=== PATIENT | female | born 1970 | race Caucasian/White ===

== ENCOUNTER → 2016-05-05 | Outpatient (CLI) | payer OTHER ==
--- NOTE | 2016-05-05 12:35 | MRI ---
EXAM DESCRIPTION: Brain MRI. CLINICAL HISTORY: Migraine with aura COMPARISON: None. TECHNIQUE: Multiplanar, multisequence MR images were acquired without IV contrast. FINDINGS: The midline structures are unremarkable on today's study. No restricted diffusion on today's study. The cade and white matter is unremarkable. Ventricles are midline and unremarkable. No abnormal extra-axial fluid. No mass or mass effect. The flow voids are maintained on today's study. Orbits and globes are unremarkable. Large retention cyst seen within the right maxillary sinus. No evidence of sinusitis. No mastoid air cell fluid. Gradient sequences reveal no evidence of old hemorrhage. IMPRESSION: Today's exam is unremarkable in stable when compared to prior study. No findings to account for patient's migraine headaches. Electronically signed by: Roscoe Peterson MD 05/05/2016 12:33
== END ==
LOC: MRI 10:49
PROVIDERS: ATTEND Family Medicine
DX: G43.109 Migraine with aura, not intractable, without status migrainosus (principal)

== ENCOUNTER → 2016-10-17 | Outpatient (CLI) | payer OTHER | END | disposition home or self-care (01) | LOC: MAMMO 15:26 | PROVIDERS: ATTEND Nurse Practitioner Acute Care | DX: Z12.31 Encounter for screening mammogram for malignant neoplasm of breast (principal) ==

== ENCOUNTER → 2017-03-22 | Outpatient (CLI) | payer BC ==
--- NOTE | 2017-03-22 17:46 | MRI ---
EXAM DESCRIPTION: Brain w/wo Contrast CLINICAL HISTORY: HYPOGOSSAL NERVE NEURALGIA COMPARISON: None TECHNIQUE: Multiplanar multisequence imaging of the brain including the intravenous administration of contrast. FINDINGS: There is no evidence of acute mass, mass effect, midline shift or hemorrhage. No focal abnormal extra-axial fluid collection is seen. The ventricles, basal cisterns and extra-axial fluid spaces are normal in size and configuration. Brain parenchymal signal is normal. No abnormality is seen at the CP angles and IACs. No abnormal foci of enhancement. IMPRESSION: Normal exam. Electronically signed by: George Guzman 03/22/2017 5:45 PM [facility]
--- NOTE | 2017-03-25 17:15 | CT ---
EXAM DESCRIPTION: Soft Tissue Neck w/Contrast: CT. 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 CT scan of the neck soft tissues 08/01/2012. TECHNIQUE: Spiral, axial 2.5 mm scans through the neck soft tissues after infusion of IV contrast. Sagittal and coronal 2.0 mm reconstructions. No adverse reactions. Total Exam DLP: 274.89 mGy-cm. This exam was performed according to our departmental CT dose-optimization program which includes automated exposure control, adjustment of the mA and/or kV according to patient size and/or use of iterative reconstruction technique; to reduce radiation dose to as low as reasonably achievable (ALARA). FINDINGS: Since the prior study, the right submandibular gland and right parotid gland have been excised with numerous surgical clips in the glandular bed also posterior to the glandular bed abutting the base of the right parotid gland. Increased density in the residual fat with deformity of the overlying skin where excision was made. Increased subcutaneous thickening at the base of the right external auditory canal No abnormal enhancement in the residual fatty tissue. Normal size density and enhancement of the left submandibular gland. Lymph node lateral to this gland and a submental lymph node is also visualized. Surgical clips in the parapharyngeal space and the right common carotid space. No adenopathy or surgical clips in the right paracervical space. No bone destruction. Large polyp or mucous retention cyst in the base anterior right antrum. Bilateral ethmoid air cells and left antrum are well aerated. Mastoid air cells are well-aerated. The included nasopharynx or oropharynx and hypopharynx are not effaced or displaced. No significant abnormalities in the cervical spine. IMPRESSION: 1. Previous resection of the right submandibular and right parotid glands for benign tumor with lymph node staging surgical clips. Deformity of the overlying skin. No abnormal mass or abnormal contrast enhancement in the surgical bed. 2. Mucous retention cyst or polyp in the right maxillary antrum resolved from acute sinusitis on the prior study and chronic pansinusitis in the paranasal sinuses. Electronically signed by: George Howell MD 03/25/2017 5:13 PM [employer]AM[employer]ER Workstation: [employer]
== END ==
LOC: CT 16:00
PROVIDERS: ATTEND Family Medicine
DX: D11.0 Benign neoplasm of parotid gland (principal); G52.3 Disorders of hypoglossal nerve

== ENCOUNTER → 2017-03-22 | Outpatient (CLI) | payer BC | LOC: MRI 15:21 | PROVIDERS: ATTEND Family Medicine | DX: Z79.899 Other long term (current) drug therapy (principal) ==

== ENCOUNTER → 2017-09-21 | Outpatient (CLI) | payer BC | LOC: GMAJ 11:10 | PROVIDERS: ATTEND Family Medicine | DX: Z00.00 Encounter for general adult medical examination without abnormal findings (principal) ==

== ENCOUNTER → 2017-10-19 | Outpatient (CLI) | payer BC ==
--- NOTE | 2017-10-19 09:55 | US ---
EXAM DESCRIPTION: Soft Tissue,Head/Neck CLINICAL HISTORY: 47 years, Female, THYROID NODULE COMPARISON: CT soft tissue neck March 22, 2017 FINDINGS: Thyroid ultrasound demonstrates inhomogeneous thyroid gland with measurable nodule on the right. The coarse texture may indicate developing nodules of what may eventually be a multinodular goiter. The appearance is not typical of chronic stage of Hodgkin low-dose thyroiditis. No anterior cervical lymph nodes are seen on the submitted images.. The right lobe measures 5.3 x 1.5 x 1.6 cm. The thyroid isthmus measures 1.2 mm in thickness. The left lobe measures 1.3 x 1.4 x 4.6 cm. Nodules Right In the right thyroid lobe, two nodules are identified. One in the posterior mid to lower right thyroid lobe is slightly hypoechoic relative to the adjacent thyroid parenchyma and measures 1 x 0.6 x 0.8 cm. No internal microcalcifications to suggest the need for biopsy at this point. Follow-up sonogram in one year is recommended. In the more anterior inferior right thyroid lobe and other nodule is noted with a hypoechoic halo and central echogenicity slightly less than the adjacent thyroid parenchyma. This measures 1.2 x 0.5 x 0.7 cm. At this size, with no internal microcalcifications, one year follow-up is recommended. The left In the inferior left thyroid lobe, small hypoechoic lesion measures 0.6 x 0.3 x 0.4 cm. At this size this is unlikely to be significant. IMPRESSION: Bilateral thyroid nodules. Follow-up imaging in one year is recommended. Electronically signed by: Joe Arnold MD 10/19/2017 9:53 AM CDT
--- NOTE | 2017-10-19 09:57 | US ---
EXAM DESCRIPTION: Carotid Duplex CLINICAL HISTORY: CAROTID BRUIT COMPARISON: None Available. TECHNIQUE: Carotid Doppler ultrasound FINDINGS: Right Submitted images show arteriosclerotic plaque in the right carotid bulb without significant narrowing. The following flow velocities were obtained: Common carotid artery peak systolic flow velocity measures 82-96 centimeters per second. Internal carotid artery peak systolic flow velocity measures 71-83 centimeters per second. External carotid artery peak systolic flow velocity measures 66 centimeters per second. Flow in the right vertebral artery is antegrade. The right internal carotid to common carotid peak systolic flow velocity ratio equals 0.9 which is normal. Left Submitted images show widely patent vessels with mild plaque at the carotid bifurcation. The following flow velocities were obtained: Common carotid artery peak systolic flow velocity measures 80-90 centimeters per second. Internal carotid artery peak systolic flow velocity measures 62-86 centimeters per second. External carotid artery peak systolic flow velocity measures 78 centimeters per second. Flow in the left vertebral artery is antegrade. The left internal carotid to common carotid peak systolic flow velocity ratio of 1.0 is normal. IMPRESSION: No hemodynamically significant stenosis. Electronically signed by: Joe Arnold MD 10/19/2017 9:56 AM CDT
== END ==
LOC: US 07:48
PROVIDERS: ATTEND Family Medicine
DX: I65.23 Occlusion and stenosis of bilateral carotid arteries (principal); E04.1 Nontoxic single thyroid nodule

== ENCOUNTER → 2017-12-19 | Outpatient (CLI) | payer BC | LOC: GMAJS 14:21 | PROVIDERS: ATTEND Physician Assistant | DX: R42 Dizziness and giddiness (principal) ==

== ENCOUNTER → 2018-03-08 | Outpatient (CLI) | payer BC ==
--- NOTE | 2018-03-11 15:04 | MAM ---
EXAM DESCRIPTION: 3D Screening BILATERAL : Digital Mammography. CLINICAL HISTORY: 48 years Female SCREEN . No complaints or personal history of breast cancer. Remote family history of breast cancer. Premenopausal. Childbirth. No HRT.. Lifetime risk of developing breast cancer (Tyrer-Cuzick model)(%): 7.4. COMPARISON: 2-D digital screening bilateral mammography 10/17/2016. TECHNIQUE: Bilateral CC and MLO projection full-field images, digital tomosynthesis mammographic technique. Bilateral digital 2-D full-field MLO images. CAD not available for tomosynthesis or 2-D images. FINDINGS: The breast parenchymal density pattern is: Heterogeneously dense breast tissue, which may obscure small masses. No skin thickening or nipple retraction. Bilateral solitary microcalcifications. No new focal, stellate mass or density, focal asymmetry , and no suspicious microcalcifications bilaterally. Stable mammograms compared to prior study. Taking into account, differences in mammographic technique. IMPRESSION: Benign exam. BIRAD CATEGORY: 2 BENIGN FINDINGS. RECOMMENDATIONS: FOLLOW UP: Routine digital bilateral mammographic screening, one year interval from February 2018. Written communication explaining the IMPRESSION and follow-up, will be mailed to the patient and referring health care provider. According to the [employer], yearly mammograms are recommended starting at age 40 and continuing as long as a woman is in good health. Any breast change noted on a breast self-exam should be reported promptly to the patient's healthcare provider. Breast MRI is recommended for women with an approximately 20-25% or greater lifetime risk of breast cancer, including women with a strong family history of breast or ovarian cancer and women who have been treated for Hodgkin's disease. A negative mammographic report should not delay tissue diagnosis in patients with significant clinical history or physical findings. Extremely dense breast tissue limits the sensitivity of digital mammography. Electronically signed by: George Howell MD 03/11/2018 3:03 PM [employer]
== END ==
LOC: MAMMO 08:00
PROVIDERS: ATTEND Family Medicine
DX: Z12.31 Encounter for screening mammogram for malignant neoplasm of breast (principal); E53.9 Vitamin B deficiency, unspecified

== ENCOUNTER → 2018-10-18 | Outpatient (CLI) | payer BC | LOC: GMAJ 10:40 | PROVIDERS: ATTEND Family Medicine | DX: E53.9 Vitamin B deficiency, unspecified (principal); E78.2 Mixed hyperlipidemia ==

== ENCOUNTER → 2018-11-28 | Outpatient (CLI) | payer BC | LOC: SL 19:27 | PROVIDERS: ATTEND Family Medicine | DX: G47.33 Obstructive sleep apnea (adult) (pediatric) (principal) ==

== ENCOUNTER 2019-05-29 05:29 | Day surgery (SDC) | payer BC ==
[2019-05-29] MEDS ORDERED: PROPOFOL 200 MG/20 ML VIAL IV ONE (07:00)
[2019-05-29] MEDS ORDERED: LIDOCAINE 1% 10 ML VIAL INJ ONE (07:00)
[2019-05-29] MEDS ORDERED: LACTATED RINGERS 1,000 ML ONE (07:39)
[2019-05-29] MEDS ORDERED: MIDAZOLAM INJ 2 MG/2 ML VIAL ONE (08:11)
[2019-05-29 08:17] VITALS: O2SAT 99
--- NOTE | 2019-05-29 09:28 | OP ---
DATE OF PROCEDURE: 05/29/19 PREOPERATIVE DIAGNOSIS: 1. Screening colonoscopy. POSTOPERATIVE DIAGNOSIS: 1. Colonic polyps times 2. PROCEDURE: 1. Colonoscopy. SURGEON: Thomas Bowser MD PROCEDURE: After complete informed consent and adequate prep, the patient was placed in the left lateral position. General anesthesia was induced. Digital rectal exam was normal. The colonoscope was introduced without difficulty to the cecum. Upon withdrawal, in the distal ascending colon, an approximately 1.5 cm polyp was identified and removed completely with a snare, first cold snare would not go through, so we used a slight amount of heat while elevating the polyp and it was removed entirely. On further withdrawal, the mucosa appeared normal. No other polyps were seen except in the mid descending colon, an additional polyp, approximately 6 mm, was identified. It also was removed completely with a hot snare and stuck on the end of the scope. It was retrieved and the scope re-inserted to the mid descending colon. Upon further withdrawal, no additional polyps were noted. The rectum appeared normal. The patient tolerated the procedure and was taken to Recovery to be discharged. #[id number] cc: Thomas Read MD [facility]
[2019-05-29 10:11] VITALS: BP 168/88; TEMP 97.6
== END 2019-05-29 09:40 | disposition home or self-care (01) ==
LOC: AMB 05:29
PROVIDERS: ATTEND Surgery
DX: Z12.11 Encounter for screening for malignant neoplasm of colon (principal); D12.2 Benign neoplasm of ascending colon; D12.4 Benign neoplasm of descending colon; K21.9 Gastro-esophageal reflux disease without esophagitis; K58.9 Irritable bowel syndrome, unspecified; E78.00 Pure hypercholesterolemia, unspecified; F41.9 Anxiety disorder, unspecified; Z88.0 Allergy status to penicillin; Z88.2 Allergy status to sulfonamides; Z88.1 Allergy status to other antibiotic agents; Z88.8 Allergy status to other drugs, medicaments and biological substances; Z79.899 Other long term (current) drug therapy
CPT/HCPCS: 00812; 45385; J2250; J3490; J7120

== ENCOUNTER → 2019-12-22 | Outpatient (CLI) | payer BC | LOC: GMAJ 16:37 | PROVIDERS: ATTEND Family Medicine | DX: M25.541 Pain in joints of right hand (principal) ==

== ENCOUNTER → 2019-12-22 | Outpatient (CLI) | payer BC ==
--- NOTE | 2019-12-23 16:22 | MAM ---
EXAM DESCRIPTION: 3D Screening BILATERAL : Digital Mammography. CLINICAL HISTORY: 49 years old female screening. No complaints. Mother with ovarian cancer age 28. Remote family history of breast cancer. Menarche age 14. Childbirth age 18. Premenopausal. No HRT. Lifetime risk of developing breast cancer (Tyrer-Cuzick model)(%): 14.9 COMPARISON: Bilateral screening digital breast tomosynthesis February 2018.. TECHNIQUE: Bilateral CC and MLO projection full-field images, digital tomosynthesis mammographic technique. Bilateral digital 2-D full-field MLO images. CAD available for 2-D images. FINDINGS: The breast parenchymal density pattern is: Heterogeneously dense breast tissue, which may obscure small masses. No skin thickening or nipple retraction. Skin mole markers posterior right. Solitary microcalcifications. No new focal, stellate mass or density, focal asymmetry , and no suspicious microcalcifications bilaterally. Stable mammograms compared to prior study. IMPRESSION: Benign exam. BIRAD CATEGORY: 2 BENIGN FINDINGS. RECOMMENDATIONS: FOLLOW UP: Routine digital bilateral mammographic screening, one year interval from November 2019. Written communication explaining the IMPRESSION and follow-up, will be mailed to the patient and referring health care provider. According to the [employer], yearly mammograms are recommended starting at age 40 and continuing as long as a woman is in good health. Any breast change noted on a breast self-exam should be reported promptly to the patient's healthcare provider. Breast MRI is recommended for women with an approximately 20-25% or greater lifetime risk of breast cancer, including women with a strong family history of breast or ovarian cancer and women who have been treated for Hodgkin's disease. A negative mammographic report should not delay tissue diagnosis in patients with significant clinical history or physical findings. Extremely dense breast tissue limits the sensitivity of digital mammography. Electronically signed by: George Howell MD 12/23/2019 4:21 PM CDT
== END ==
LOC: MAMMO 15:02
PROVIDERS: ATTEND Family Medicine
DX: Z12.31 Encounter for screening mammogram for malignant neoplasm of breast (principal)

== ENCOUNTER 2020-03-09 18:16 | Emergency (ER) | payer BC ==
[2020-03-09 18:36] VITALS: BP 138/100; TEMP 97.6
--- NOTE | 2020-03-09 18:40 | ED.PDOC ---
History of Present Illness - General Chief Complaint: Upper Extremity Injury Stated Complaint: left index finger injury Time Seen by Provider: 03/09/20 18:19 Source: patient Exam Limitations: no limitations Additional Information: laceration of left second finger , UTD on tetanus - History of Present Illness Occurred: just prior to arrival Pain - Upper Extremity: mild: Hand, left Method of Injury: other - cut Improving Factors: nothing Worsening Factors: nothing Associated Symptoms: none Allergies/Adverse Reactions: Allergies Amoxicillin [From Augmentin] Allergy (Unverified 03/09/20 18:34) Clarithromycin [From Biaxin] Allergy (Unverified 03/09/20 18:34) Clavulanic Acid [From Augmentin] Allergy (Unverified 03/09/20 18:34) Lincomycin Allergy (Unverified 03/09/20 18:34) Penicillin V [From Pen-Vee-K] Allergy (Unverified 03/09/20 18:34) Home Medications: Ambulatory Orders ALPRAZolam [Xanax] 0.25 mg PO HS 06/25/13 Zolpidem Tartrate [Ambien] 5 mg PO HS 06/25/13 Review of Systems - Review of Systems Constitutional: States: no symptoms reported EENTM: States: no symptoms reported Respiratory: States: no symptoms reported Cardiology: States: no symptoms reported Gastrointestinal/Abdominal: States: no symptoms reported Genitourinary: States: no symptoms reported Musculoskeletal: States: no symptoms reported Skin: States: other - laceration left second digit Neurological: States: no symptoms reported Endocrine: States: no symptoms reported Hematologic/Lymphatic: States: no symptoms reported All other Systems: Reviewed and Negative Past Medical History (General) - Patient Medical History Hx Congestive Heart Failure: No Hx Diabetes: No Hx MRSA: No Family Medical History - Family History Mother Family History: Unknown Physical Exam - Physical Exam General Appearance: Alert, Comfortable Eyes, Ears, Nose, Throat Exam: PERRL/EOMI, normal ENT inspection, TMs normal, pharynx normal Neck: non-tender, full range of motion, supple, normal inspection Cardiovascular/Respiratory: regular rate, rhythm, no M/R/G, normal peripheral pulses, no JVD Abdominal Exam: non-tender, no organomegaly Back Exam: normal inspection, no CVA tenderness, no vertebral tenderness Shoulder Exam: normal inspection, non-tender, no evidence of injury Elbow/Forearm Exam: normal inspection, non-tender, no evidence of injury Wrist Exam: normal inspection, non-tender Hand Exam: normal inspection, non-tender Neuro/Tendon: normal sensation, normal motor functions Mental Status: alert, oriented x 3 Skin Exam: normal color, warm/dry Progress - Progress Progress: 03/09/20 18:43 laceration repaired 03/09/20 18:46 UTD ON TETANUS SHOT Procedures - Laceration/Wound Repair Left Finger Wound's Depth, Shape: superficial Wound Explored: no foreign body removed Irrigated w/ Saline (cc's): 50 - ml Betadine Prep?: Yes Wound Debrided: none Wound Repaired With: dermabond Layer Closure?: Yes Sterile Dressing Applied?: Yes Splint Applied?: No Sling Applied?: No Departure - Departure Clinical Impression: Laceration of finger of left hand Condition: Good Departure Forms: ED Discharge - Pt. Copy, Patient Portal Self Enrollment Instructions: DI for Arm Pain, Laceration Repair, Laceration Repair With Glue (DC) Referrals: Thomas Read MD [Primary Care Provider] - 1-2 Weeks Home Medications: Ambulatory Orders ALPRAZolam [Xanax] 0.25 mg PO HS 06/25/13 Zolpidem Tartrate [Ambien] 5 mg PO HS 06/25/13 Additional Instructions: -Avoid water to the laceration repair site for about 48 hours. -Follow-up your primary care physician 1 to 2 days. - -Return to emergency department immediately develop any signs of infection, as discussed there is also possibility that he can develop secondary infection Posterior laceration. Very important to follow-up.
[2020-03-09 18:52] VITALS: O2SAT 100
== END 2020-03-09 18:53 | disposition home or self-care (01) ==
LOC: ER 18:16
DX: S61.211A Laceration without foreign body of left index finger without damage to nail, initial encounter (principal); Z79.899 Other long term (current) drug therapy; Z88.1 Allergy status to other antibiotic agents; Z88.0 Allergy status to penicillin; W23.0XXA Caught, crushed, jammed, or pinched between moving objects, initial encounter; Y92.9 Unspecified place or not applicable

== ENCOUNTER → 2020-05-31 | Outpatient (CLI) | payer BC | LOC: GMALS 17:31 | PROVIDERS: ATTEND Nurse Practitioner Acute Care | DX: R30.0 Dysuria (principal) ==